=== PATIENT | female | born 1955 | race Caucasian/White ===

== ENCOUNTER 2022-10-31 11:04 | Outpatient (CLI) | payer MEDICARE, OTHER | END 2022-10-31 11:05 | disposition home or self-care (01) | LOC: CSHMAMMO 11:04 | PROVIDERS: ATTEND Internal Medicine | DX: Z12.31 Encounter for screening mammogram for malignant neoplasm of breast (principal); Z80.3 Family history of malignant neoplasm of breast; Z98.82 Breast implant status | CPT/HCPCS: 77063; 77067 ==

== ENCOUNTER 2023-12-18 09:30 | Outpatient (CLI) | payer MEDICARE, OTHER | END 2023-12-18 09:31 | disposition home or self-care (01) | LOC: CSHMAMMO 09:30 | PROVIDERS: ATTEND Internal Medicine | DX: Z12.31 Encounter for screening mammogram for malignant neoplasm of breast (principal); Z80.3 Family history of malignant neoplasm of breast; Z98.82 Breast implant status; Z98.890 Other specified postprocedural states | CPT/HCPCS: 77063; 77067 ==

== ENCOUNTER 2024-06-23 12:23 | Inpatient (IN) | payer MEDICARE, OTHER ==
[2024-06-23 13:12] LABS: #Basophils 0.01 10x3/uL (0.0-0.2); #Eosinophils 0.16 10x3/uL (0.0-0.5); #Monocytes 0.04 10x3/uL (0.0-1.1); #Neutrophils 8.37 10x3/uL (1.5-8.4); %Basophils 0.1 % (0.0-2.0); %Eosinophils 1.8 % (0.0-6.0); %Lymphocytes 3.4 % (18.0-47.0); %Monocytes 0.4 % (0.0-10.0); Hemoglobin 14.3 g/dL (12.0-15.5); Mean Corpuscular HGB CONC 31.8 g/dL (32.0-36.0); Mean Corpuscular Hemoglobin 28.3 pg (27.0-33.0); Mean Corpuscular Volume 88.9 fL (81.6-98.3); Mean Platelet Volume 8.8 fL (7.4-10.4); Platelet Count 172 10x3/uL (150-450); RBC Distribution Width 13.6 % (11.5-14.5); Red Blood Cell (RBC) Count 5.06 10x6/uL (3.90-5.03); White Blood Cell (WBC) Count 8.9 10x3/uL (3.5-10.5)
[2024-06-23 13:12] LABS: Bilirubin Neg (Negative); Blood, Urine 250 (Negative); Clarity Cloudy (Clear); Glucose, Urine (Dipstick) Normal (Negative); Ketone, Urine Negative (Negative); Leukocyte 500 (Negative); Nitrite Positive (Negative); Protein, Urine (Dipstick) 100 mg/dl (Neg-Trace); Urobilinogen Normal mg/dL (Less than 2)
[2024-06-23 13:24] LABS: Bacteria/HPF 4+ HPF (None Seen); CAUTI Indications for Culture Acute Hematuria; RBC/HPF Greater than 50 HPF (0-3); Squamous Epithelial 0-3 HPF (0-3); WBC/HPF Greater than 50 HPF (0-3)
[2024-06-23 13:25] LABS: Urine Culture Reflex Yes Yes
[2024-06-23 13:45] LABS: ALT (SGPT) 18 U/L (8-55); AST (SGOT) 27 U/L (5-34); Albumin 3.4 g/dL (3.4-4.8); Alkaline Phosphatase 94 U/L (40-110); Anion Gap 20 mmol/L (10-20); BUN (Urea Nitrogen) 23 mg/dL (9.8-20.1); Calc. Creatinine Clearance 0 mL/min (70-130); Calcium 9.9 mg/dL (7.8-10.44); Carbon Dioxide 19 mmol/L (23-31); Chloride 104 mmol/L (98-107); Estimated GFR 28; Globulin 3.3 g/dL (2.4-3.5); Glucose 183 mg/dL (83-110); Lipase 28 U/L (8-78); Potassium 4.5 mmol/L (3.5-5.1); Protein, Total 6.7 g/dL (5.8-8.1); Sodium 138 mmol/L (136-145)
[2024-06-23] MEDS ORDERED: cefTRIAXone (ROCEPHIN) 2 GM VIAL ONE (14:13)
[2024-06-23] MEDS ORDERED: Rocuronium Bromide 10 MG/ML (10ML VIAL) ONE (16:49)
[2024-06-23] MEDS ORDERED: PROPOFOL 20 ML ONE (16:49)
[2024-06-23] MEDS ORDERED: fentaNYL 50 mcg/mL 1 mL Vial ONE (16:49)
[2024-06-23] MEDS ORDERED: Midazolam HCl 2 mg/2 ml Vial ONE (16:50)
[2024-06-23] MEDS ORDERED: Glucagon 1 MG/ML KIT ONE (16:51)
[2024-06-23] MEDS ORDERED: Iopamidol 0 ML ONE (16:51)
[2024-06-23] MEDS ORDERED: Morphine 2 MG/ML VIAL SLOW IVP PRN (17:41)
[2024-06-23] MEDS ORDERED: Bisacodyl 5 MG TAB PO PRN (17:42)
[2024-06-23] MEDS ORDERED: traMADol HCl 50 MG TAB PO PRN (17:42)
[2024-06-23] MEDS ORDERED: SUGAMMADEX SODIUM 200 MG/2 ML VIAL ONE (17:53)
[2024-06-23 19:39] VITALS: BMI 28.1
[2024-06-23] MEDS: Sodium Chloride 0.9% 1,000 ML IV SCH (20:33)
[2024-06-23] MEDS ORDERED: ALPRAZolam 0.25 MG TAB PO PRN (20:51)
[2024-06-23] MEDS ORDERED: Zolpidem Tartrate 5 MG TAB PO PRN (21:22)
[2024-06-23] MEDS: Acetaminophen 325 MG TAB PO PRN (22:02)
[2024-06-23] MEDS: Metoprolol Tartrate 50 MG TAB PO SCH (22:02)
[2024-06-23] MEDS: Meropenem 1 GM in Sodium Chloride 0.9% 100 ML IVPB SCH (22:02)
[2024-06-23] MEDS: Icosapent Ethyl 1 GM CAPSULE PO SCH (22:03)
[2024-06-24 03:52] LABS: Hematocrit 36.7 % (34.9-44.5); Hemoglobin 12.2 g/dL (12.0-15.5); Mean Corpuscular HGB CONC 33.2 g/dL (32.0-36.0); Mean Corpuscular Hemoglobin 29.8 pg (27.0-33.0); Mean Corpuscular Volume 89.5 fL (81.6-98.3); Mean Platelet Volume 9.5 fL (7.4-10.4); Platelet Count 146 10x3/uL (150-450); RBC Distribution Width 13.9 % (11.5-14.5); White Blood Cell (WBC) Count 29.7 10x3/uL (3.5-10.5)
[2024-06-24 04:17] LABS: Anion Gap 15 mmol/L (10-20); BUN (Urea Nitrogen) 27 mg/dL (9.8-20.1); Calc. Creatinine Clearance 41 mL/min (70-130); Calcium 8.8 mg/dL (7.8-10.44); Carbon Dioxide 19 mmol/L (23-31); Chloride 109 mmol/L (98-107); Estimated GFR 34; Glucose 143 mg/dL (83-110); Sodium 139 mmol/L (136-145)
[2024-06-24 04:41] LABS: MDiff Complete? YES
[2024-06-24 04:44] LABS: Band 22 % (5-11); Eosinophils 1 % (0-10); Lymphocytes 2 % (21-51); Metamyelocyte 4 % (0-0); Monocytes 3 % (0-10); Neutrophil 68 % (42-75)
[2024-06-24 04:45] LABS: Platelet Adequacy Comment Platelets Decreased; RBC Morph Comment Within Normal Limits
[2024-06-24] MEDS: Meropenem 1 GM in Sodium Chloride 0.9% 100 ML IVPB SCH (05:50)
[2024-06-24] MEDS: Levothyroxine 150 MCG TAB PO SCH (06:29)
[2024-06-24] MEDS: Levothyroxine Sodium 25 MCG TAB PO SCH (06:29)
[2024-06-24] MEDS: Amlodipine 5 MG TAB PO SCH (10:12)
[2024-06-24] MEDS: Aspirin 81 mg Enteric Coated Tablet PO SCH (10:13)
[2024-06-24] MEDS: Enoxaparin 30 MG (0.3 mL) SYRINGE SC SCH (10:15)
[2024-06-24] MEDS: Estradiol 1 MG TAB PO SCH (10:16)
[2024-06-24] MEDS: Losartan 50 MG TAB PO SCH ×2 (10:27→20:37)
[2024-06-24] MEDS: Oxybutynin 5 MG TAB PO PRN (21:05)
[2024-06-25 04:06] LABS: Anion Gap 14 mmol/L (10-20); BUN (Urea Nitrogen) 29 mg/dL (9.8-20.1); Calc. Creatinine Clearance 62 mL/min (70-130); Calcium 8.3 mg/dL (7.8-10.44); Carbon Dioxide 19 mmol/L (23-31); Chloride 112 mmol/L (98-107); Estimated GFR 56; Glucose 124 mg/dL (83-110); Potassium 3.8 mmol/L (3.5-5.1); Sodium 141 mmol/L (136-145)
[2024-06-25 04:24] LABS: Hematocrit 35.5 % (34.9-44.5); Hemoglobin 11.7 g/dL (12.0-15.5); Mean Corpuscular Hemoglobin 29.5 pg (27.0-33.0); Mean Corpuscular Volume 89.6 fL (81.6-98.3); Mean Platelet Volume 9.7 fL (7.4-10.4); Platelet Count 136 10x3/uL (150-450); RBC Distribution Width 14.2 % (11.5-14.5); Red Blood Cell (RBC) Count 3.96 10x6/uL (3.90-5.03); White Blood Cell (WBC) Count 19.5 10x3/uL (3.5-10.5)
[2024-06-25 04:25] LABS: #Basophils 0.03 10x3/uL (0.0-0.2); #Eosinophils 0.13 10x3/uL (0.0-0.5); #Monocytes 0.51 10x3/uL (0.0-1.1); #Neutrophils 18.04 10x3/uL (1.5-8.4); %Basophils 0.2 % (0.0-2.0); %Eosinophils 0.7 % (0.0-6.0); %Lymphocytes 3.6 % (18.0-47.0); %Monocytes 2.6 % (0.0-10.0); %Neutrophils 91.4 % (40.0-75.0)
[2024-06-25] MEDS: Meropenem 1 GM in Sodium Chloride 0.9% 100 ML IVPB SCH (13:43)
[2024-06-26 04:16] LABS: #Basophils 0.04 10x3/uL (0.0-0.2); #Monocytes 0.47 10x3/uL (0.0-1.1); #Neutrophils 12.68 10x3/uL (1.5-8.4); %Basophils 0.3 % (0.0-2.0); %Eosinophils 1.4 % (0.0-6.0); %Lymphocytes 5.1 % (18.0-47.0); %Monocytes 3.3 % (0.0-10.0); %Neutrophils 89.1 % (40.0-75.0); Hematocrit 33.8 % (34.9-44.5); Hemoglobin 11.1 g/dL (12.0-15.5); Mean Corpuscular HGB CONC 32.8 g/dL (32.0-36.0); Mean Corpuscular Hemoglobin 29.2 pg (27.0-33.0); Mean Corpuscular Volume 88.9 fL (81.6-98.3); Mean Platelet Volume 9.9 fL (7.4-10.4); Platelet Count 127 10x3/uL (150-450); RBC Distribution Width 14.2 % (11.5-14.5); White Blood Cell (WBC) Count 14.2 10x3/uL (3.5-10.5)
[2024-06-26 04:51] VITALS: TEMP 98.8
[2024-06-26 05:05] LABS: Anion Gap 11 mmol/L (10-20); BUN (Urea Nitrogen) 18 mg/dL (9.8-20.1); Calc. Creatinine Clearance 78 mL/min (70-130); Calcium 8.5 mg/dL (7.8-10.44); Carbon Dioxide 20 mmol/L (23-31); Chloride 111 mmol/L (98-107); Estimated GFR 73; Glucose 110 mg/dL (83-110); Potassium 3.6 mmol/L (3.5-5.1); Sodium 138 mmol/L (136-145)
[2024-06-26 10:01] VITALS: BP 142/64
== END 2024-06-26 10:35 | disposition home or self-care (01) | DRG 660 ==
LOC: CSHERS 12:23 → CSHTELE 16:00
PROVIDERS: ADMIT Internal Medicine; ATTEND Internal Medicine
PROC: 0T778DZ Dilation of Left Ureter with Intraluminal Device, Via Natural or Artificial Opening Endoscopic (ICD-10-PCS; principal; 2024-06-26)
DX: N13.6 Pyonephrosis (principal); T83.592A Infection and inflammatory reaction due to indwelling ureteral stent, initial encounter; N20.0 Calculus of kidney; N17.9 Acute kidney failure, unspecified; I10 Essential (primary) hypertension; E03.9 Hypothyroidism, unspecified; E11.9 Type 2 diabetes mellitus without complications; N13.9 Obstructive and reflux uropathy, unspecified; Z88.1 Allergy status to other antibiotic agents; Z79.890 Hormone replacement therapy; Z79.899 Other long term (current) drug therapy
CPT/HCPCS: 36415; 36416; 51600; 74176; 74430; 80048; 80053; 81001; 83690; 85025; 87040; 87077; 87086; 87186; 96365; C2625; J0696; J1611; J2185; J2250; J2704; J3010; J7030; Q9967

== ENCOUNTER 2025-02-05 08:53 | Outpatient (CLI) | payer MEDICARE, OTHER ==
[2025-02-05] MEDS ORDERED: Iopamidol 370 76% 100 ML VIAL ONE (11:03)
== END 2025-02-05 08:54 | disposition home or self-care (01) ==
LOC: CSHCT 08:53
PROVIDERS: ATTEND Thoracic Surgery (Cardiothoracic Vascular Surgery)
DX: I73.9 Peripheral vascular disease, unspecified (principal); I71.43 Infrarenal abdominal aortic aneurysm, without rupture; I70.0 Atherosclerosis of aorta; I77.89 Other specified disorders of arteries and arterioles; I74.5 Embolism and thrombosis of iliac artery; I74.8 Embolism and thrombosis of other arteries; I77.1 Stricture of artery; N20.0 Calculus of kidney; K57.30 Diverticulosis of large intestine without perforation or abscess without bleeding
CPT/HCPCS: 75635; Q9967